=== PATIENT | female | born 1985 | race Caucasian/White ===

== ENCOUNTER 2023-11-07 20:57 | Emergency (ER) | payer SELFPAY ==
[~2023-11-07] VITALS: Ht 170.2 cm; Wt 103.0 kg
[2023-11-07 21:04] VITALS: PULSE 77; RESP 18; TEMP 98.3; O2SAT 99
[2023-11-07] MEDS ORDERED: ONDANSETRON ODT4 MG PO (21:46)
[2023-11-07] MEDS: SODIUM CHLORIDE 0.9% 1000ML 1,000 ML IV STA (21:47)
[2023-11-07] MEDS: ONDANSETRON HCL INJ 2MG/ML 2ML 2 MG/ML VIAL IV STA (21:48)
== END 2023-11-07 22:35 | disposition home or self-care (01) ==
LOC: FSED 21:01
DX: R11.2 Nausea with vomiting, unspecified (principal); R53.81 Other malaise
CPT/HCPCS: 80053; 81003; 81025; 85025; 99284; J2405; J7030